=== PATIENT | male | born 1960 | race Two or more races ===

== ENCOUNTER 2025-05-21 12:54 | Emergency (ER) | payer MEDICARE, MEDICAID ==
[~2025-05-21] VITALS: Ht 177.8 cm; Wt 81.8 kg
--- NOTE | 2025-05-21 13:32 | ED.PDOC ---
Psychiatric HPI Comments 64 y/o M, MARTHA, presents to the ED for CC of ETOH intoxication. EMS reports, patient is coming from [facility] where faculty called d/t patient being intoxicated. Upon arrival to the ED, patient is intoxicated and drowsy; unable to respond to questions appropriately at this time. Denies any recent falls. No other symptoms or modifying factors are obtainable at this time. Chief Complaint: ETOH Time Seen by MD: 13:00 Reviewed Notes: Nurses Notes, Corporate Secretary Notes, Medications, Allergies Information Source: Patient, Emergency Med Personnel Mode of Arrival: EMS Severity: Unable to Care for Self Severity of Pain: None Severity of Mental Status: None Severity of Symptoms: Moderate Timing: Minutes Duration: Since onset Prehospital treatment: None Presents with: Alcohol Intoxication Current substance abuse: ETOH Stressors: None History of: None Quality: None Associated signs and symptoms: Intoxication, ETOH Past Medical History PAST MEDICAL HISTORY: Unobtainable Surgical History: Unobtainable Family History Family History: Unobtainable Social History Smoker: Unknown Alcohol: Heavy Drugs: Unknown Lives In: Shelter Constitutional: denies: chills, diaphoresis, fatigue, fever, malaise, sweats, weakness, others EENTM: denies: blurred vision, double vision, ear bleeding, ear discharge, ear drainage, ear pain, ear ringing, eye pain, eye redness, hearing loss, mouth pain, mouth swelling, nasal discharge, nose bleeding, nose congestion, nose pain, photophobia, tearing, throat pain, throat swelling, voice changes, others Respiratory: denies: cough, hemoptysis, orthopnea, SOB at rest, shortness of breath, SOB with excertion, stridor, wheezing, others Cardiovascular: denies: chest pain, dizzy spells, diaphoresis, Dyspnea on exertion, edema, irregular heart beat, left arm pain, lightheadedness, palpitations, PND, syncope, others Neurological: denies: dizziness, fainting, headache, left sided numbness, left sided weakness, numbness, paresthesia, pre-existing deficit, right sided numbness, right sided weakness, seizure, speech problems, tingling, tremors, weakness, others Musculoskeletal: denies: back pain, gout, joint pain, joint swelling, muscle pain, muscle stiffness, neck pain, others Integumetry: denies: bruises, change in color, change in hair/nails, dryness, laceration, lesions, lumps, rash, wounds, others Allergic/Immunocompromised: denies: Difficulty Healing, Frequent Infections, Hives, Itching, others Hematologic/Lymphatic: denies: anemia, blood clots, easy bleeding, easy bruising, swollen glands, others Endocrine: denies: excessive hunger, excessive sweating, excessive thirst, excessive urination, flushing, intolerance to cold, intolerance to heat, unexplained weight gain, unexplained weight loss, others Psychiatric: denies: anxiety, bipolar disorder, depression, hopeless, panic disorder, schizophrenia, sleepless, suicidal, others Unable to Obtain due to: Other (intoxicated) All Other Systems: Reviewed and Negative Physical Exam General Appearance: No Apparent Distress, Normal, Other (No signs of external trauma, smells highly of alcohol) HEENT: Normal ENT Inspection, Pharynx Normal, TMs Normal Neck: Full Range of Motion, Non-Tender, Normal, Normal Inspection Respiratory: Chest Non-Tender, Lungs Clear, No Accessory Muscle Use, No Respiratory Distress, Normal Breath Sounds Cardiovascular: No Edema, No JVD, No Murmur, No Gallop, Normal Peripheral Pulses, Regular Rate/Rhythm Breast Exam: Deferred Gastrointestinal: No Organomegaly, Non Tender, No Pulsatile Mass, Normal Bowel Sounds, Soft Genitalia: Deferred Pelvic: Deferred Rectal: Deferred Extremities: No calf tenderness, Normal capillary refill, Normal inspection, Normal range of motion, Non-tender, No pedal edema Musculoskeletal : Apperance: Normal Neurologic: Alert, truck cleaner II-XII nml as Tested, No Motor Deficits Cerebellar Function: Normal Reflexes: Normal Skin: Dry, Normal Color, Warm Lymphatic: No Adenopathy Was a procedure done? Was a procedure done?: No Psych Differential Dx OD Differential Dx: Encephalopathy Intoxication Differential Dx: Dehydration, Intoxication X-Ray, Labs, Meds, VS Vital Signs Date Time Temp Pulse Resp B/P (MAP) Pulse Ox O2 Delivery O2 Flow Rate FiO2 05/21/25 13:00 98.2 60 16 110/57 96 98.2 Lab Test 05/21/25 13:53 Range/Units White Blood Count 9.2 4.4-10.8 10^3/uL Red Blood Count 5.16 4.5-5.90 10^6/uL Hemoglobin 15.5 13.5-17.5 g/dL Hematocrit 46.6 41.0-53.0 % Mean Corpuscular Volume 90.3 80.0-100.0 fL Mean Corpuscular Hemoglobin 30.1 28.0-32.0 pg Mean Corpuscular Hemoglobin Concent 33.4 32.0-36.0 g/dL Red Cell Distribution Width 14.2 11.8-14.3 % Platelet Count 189 140-450 10^3/uL Mean Platelet Volume 8.4 6.9-10.8 fL Neutrophils (%) (Auto) 70.5 37.0-80.0 % Lymphocytes (%) (Auto) 16.0 10.0-50.0 % Monocytes (%) (Auto) 10.5 0.0-12.0 % Eosinophils (%) (Auto) 1.6 0.0-7.0 % Basophils (%) (Auto) 1.4 0.0-2.0 % Neutrophils # (Auto) 6.5 1.6-8.6 10 ^3/uL Lymphocytes # (Auto) 1.5 0.4-5.4 10 ^3/uL Monocytes # (Auto) 1.0 0-1.3 10 ^3/uL Eosinophils # (Auto) 0.1 0-0.8 10 ^3/uL Basophils # (Auto) 0.1 0-0.2 10 ^3/uL Nucleated Red Blood Cells 0.0 % Sodium Level 143 136-145 mmol/L Potassium Level 3.7 3.5-5.1 mmol/L Chloride Level 108 H 98-107 mmol/L Carbon Dioxide Level 22 20-31 mmol/L Anion Gap 13 5-15 Blood Urea Nitrogen 13 9-23 mg/dL Creatinine 1.09 0.700-1.30 mg/dL Glomerular Filtration Rate Calc 75 >90 mL/min BUN/Creatinine Ratio 11.9 10.0-20.0 Serum Glucose 100 74-106 mg/dL Calcium Level 9.0 8.7-10.4 mg/dL Salicylates Level < 3.0 -30 mg/dL Time of 1ST Reevaluation: 13:30 Reevaluation 1ST: Unchanged Time of 2ND Reevaluation: 18:53 (Upon reassessment patient is now more clinically sober, is able to ambulate steadily. Stable for discharge.) Reevaluation 2ND: Improved Patient Education/Counseling: Diagnosis, Treatment Family Education/Counseling: No Family Present Departure 1 Departure Time of Disposition: 18:54 (64-year-old male with past medical history of alcohol abuse sent in from his assisted living facility for alcohol intoxication. Patient smells heavily of alcohol, does admit to drinking heavily. Denies any recent falls, has no obvious signs of trauma, for this reason does not require any CT imaging of the head. CBC with no evidence of critical leukocytosis or significant anemia. Metabolic panel with no evidence of any acute electrolyte abnormalities which could be further contributing to altered mental status. Patient arrives with stable vitals. He was observed for several hours, was sleeping comfortably. Then woke up after being in the emergency department for numerous hours. Able to ambulate steadily. Stable for discharge given no other acute process.) Impression: Primary Impression: Alcohol intoxication Additional Impression: Alcohol abuse Disposition: 01 HOME / SELF CARE / HOMELESS Condition: Stable Discharged With: Self Critical Care Note Critical Care Time?: No Stability Stability form required: No Heart Score Heart Score: Heart Score Response (Comments) Value History N/A 0 EKG N/A 0 Age N/A 0 Risk Factors N/A 0 Troponin N/A 0 Total 0 I personally scribed for MONAE ROSS MD ([email or web address]) on 05/21/25 at 13:32. Electronically submitted by Pili Remy [email or web address]). MONAE ROSS MD May 21, 2025 13:32
[2025-05-21 14:04] LABS: Hematocrit 46.6 % (41.0-53.0); Hemoglobin 15.5 g/dL (13.5-17.5); Mean Corpuscular Hemoglobin 30.1 pg (28.0-32.0); Mean Corpuscular Volume 90.3 fL (80.0-100.0); Nucleated Red Blood Cells % 0.0 %
[2025-05-21 14:18] LABS: Potassium 3.7 mmol/L (3.5-5.1); Sodium 143 mmol/L (136-145)
[2025-05-21 14:19] LABS: Anion Gap 13 (5-15); Calcium 9.0 mg/dL (8.7-10.4); Carbon Dioxide 22 mmol/L (20-31)
[2025-05-21 14:24] LABS: BUN/Creatinine Ratio 11.9 (10.0-20.0); Blood Urea Nitrogen 13 mg/dL (9-23); Glucose 100 mg/dL (74-106)
[2025-05-21 14:30] LABS: Chloride 108 mmol/L (98-107)
[2025-05-21 19:30] VITALS: BP 122/93; PULSE 67; RESP 16; TEMP 97.8; O2SAT 98
== END 2025-05-21 19:43 | disposition home or self-care (01) ==
LOC: ER 12:54 → EDBD 12:54 → ER 19:43
DX: F10.129 Alcohol abuse with intoxication, unspecified (principal); Z79.899 Other long term (current) drug therapy; Y90.9 Presence of alcohol in blood, level not specified
CPT/HCPCS: 36415; 80048; 80329; 85025

== ENCOUNTER 2025-05-22 00:03 | Emergency (ER) | payer MEDICARE, MEDICAID ==
[~2025-05-22] VITALS: Ht 175.3 cm; Wt 66.8 kg
[2025-05-22 02:13] VITALS: BP 148/101; PULSE 75; RESP 18; TEMP 97.4; O2SAT 98
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
--- NOTE | 2025-05-22 02:37 | DVH ---
EXAM: XY R FOOT 3 VIEW XRAY HISTORY: right foot pain COMPARISON: None TECHNIQUE: Three views of the right foot were performed. FINDINGS: No acute fracture or dislocation are identified about the right foot. No significant degenerative changes. The bones are osteopenic IMPRESSION: 1. No acute osseous abnormality. Minor degenerative changes are noted. The bones are somewhat osteopenic.
== END 2025-05-22 02:57 | disposition home or self-care (01) ==
LOC: ER 00:03
DX: G89.29 Other chronic pain (principal); M79.671 Pain in right foot; Z88.6 Allergy status to analgesic agent; Z79.899 Other long term (current) drug therapy
CPT/HCPCS: 73630